=== PATIENT | male | born 1985 ===

== ENCOUNTER 2020-09-13 15:33 | Emergency (ER) | payer BC ==
[2020-09-13 15:47] VITALS: BP 141/95; PULSE 76
--- NOTE | 2020-09-13 16:32 | EDM.PDOC ---
ED HPI GENERAL MEDICAL PROBLEM - General Chief Complaint: Neuro Symptoms/Deficits Stated Complaint: MEMORY LOSS /SOB Time Seen by Provider: 09/13/20 16:32 - History of Present Illness INITIAL COMMENTS - FREE TEXT/NARRATIVE: 35-year-old male presents to the emergency room with memory loss and shortness of breath. Patient had memory loss where he could not remember certain things today. He also has some intermittent shortness of breath he describes as a burning shortness of breath. This seems to be improving now but was really bothersome today he can remember we put some [employer] presents. He was talking to his son and could not recall what he did over New Year's. The patient had a similar episode that lasted actually a couple of weeks back in June when he had some URI symptoms and had a bit of a cough. It is unclear if he had a fever at that point. The patient was not tested for Covid during that time. He did pretty good since that episode in June up until now. Along with this he gets some pretty significant discomfort normal spasm and some of his right sided neck muscles. Family history is significant for factor V Leiden, however the patient has not had any blood clots. - Related Data Allergies Allergy/AdvReac Type Severity Reaction Status Date / Time No Known Allergies Allergy Verified 09/13/20 15:47 Home Meds: Home Meds Dextroamphetamine/Amphetamine [Adderall 20 mg Tablet] 20 mg PO ASDIRECTED 01/14/16 [History] Past Medical History Musculoskeletal History: Reports: Fracture - Past Surgical History Musculoskeletal Surgical History: Reports: Shoulder Surgery Social & Family History - Family History Family Medical History: No Pertinent Family History - Tobacco Use Tobacco Use Status *Q: Never Tobacco User - Caffeine Use Caffeine Use: Reports: Coffee - Recreational Drug Use Recreational Drug Use: No ED ROS GENERAL - Review of Systems Review Of Systems: See Below Constitutional: Reports: Weakness, Fatigue HEENT: Reports: No Symptoms Respiratory: Reports: Shortness of Breath, Cough Cardiovascular: Reports: No Symptoms Endocrine: Reports: No Symptoms GI/Abdominal: Reports: No Symptoms : Reports: No Symptoms Musculoskeletal: Reports: Neck Pain Skin: Reports: No Symptoms Neurological: Reports: Confusion. Denies: No Symptoms Psychiatric: Reports: No Symptoms Hematologic/Lymphatic: Reports: No Symptoms Immunologic: Reports: No Symptoms ED EXAM, GENERAL - Physical Exam Exam: See Below Exam Limited By: Other (Patient is pretty much symptom-free at the time of my evaluation) General Appearance: Alert, No Apparent Distress Eye Exam: Bilateral Eye: Normal Inspection, PERRL Ears: Normal External Exam, Normal Canal, Hearing Grossly Normal, Normal TMs Nose: Normal Inspection, Normal Mucosa, No Blood Throat/Mouth: Normal Inspection, Normal Lips, Normal Teeth, Normal Gums, Normal Oropharynx, Normal Voice, No Airway Compromise Head: Atraumatic, Normocephalic Neck: Normal Inspection, Supple, Non-Tender, Full Range of Motion. No: Lymphadenopathy (L), Lymphadenopathy (R) Respiratory/Chest: No Respiratory Distress, Lungs Clear, Normal Breath Sounds Cardiovascular: Regular Rate, Rhythm, No Edema, No Murmur GI/Abdominal: Normal Bowel Sounds, Soft, Non-Tender Back Exam: Normal Inspection. No: CVA Tenderness (L), CVA Tenderness (R), Vertebral Tenderness Extremities: Normal Inspection, No Pedal Edema Neurological: Alert, Oriented, CN II-XII Intact, Normal Cognition, Normal Reflexes, No Motor/Sensory Deficits Psychiatric: Normal Affect, Normal Mood Skin Exam: Warm, Dry, Intact Course - Vital Signs Last Recorded V/S: Last Vital Signs Temp 36.6 C 09/13/20 15:42 Pulse 76 09/13/20 15:42 Resp 18 09/13/20 15:42 BP 141/95 H 09/13/20 15:42 Pulse Ox 99 09/13/20 15:42 - Orders/Labs/Meds Orders: Active Orders 24 hr Category Date Time Status Chest 1V Frontal [CR] Stat Exams 09/13/20 17:10 Taken Head wo Cont [CT] Stat Exams 09/13/20 17:10 Taken CORONAVIRUS COVID-19 PCR PHL Stat Lab 09/13/20 17:14 Ordered Labs: Laboratory Tests 09/13/20 09/13/20 09/13/20 Range/Units 17:40 17:40 18:25 WBC 8.89 (4.23-9.07) K/mm3 RBC 5.14 (4.63-6.08) M/mm3 Hgb 15.0 (13.7-17.5) gm/dl Hct 44.7 (40.1-51.0) % MCV 87.0 (79.0-92.2) fl MCH 29.2 (25.7-32.2) pg MCHC 33.6 (32.2-35.5) g/dl RDW Std Deviation 40.7 (35.1-43.9) fL Plt Count 255 (163-337) K/mm3 MPV 9.5 (9.4-12.3) fl Neut % (Auto) 59.0 (34.0-67.9) % Lymph % (Auto) 33.2 (21.8-53.1) % [place] % (Auto) 6.0 (5.3-12.2) % Eos % (Auto) 1.6 (0.8-7.0) Baso % (Auto) 0.1 (0.1-1.2) % Neut # (Auto) 5.25 (1.78-5.38) K/mm3 Lymph # (Auto) 2.95 (1.32-3.57) K/mm3 Barton # (Auto) 0.53 (0.30-0.82) K/mm3 Eos # (Auto) 0.14 (0.04-0.54) K/mm3 Baso # (Auto) 0.01 (0.01-0.08) K/mm3 Sodium 141 (136-145) mEq/L Potassium 3.6 (3.5-5.1) mEq/L Chloride 105 (98-107) mEq/L Carbon Dioxide 23 (21-32) mEq/L Anion Gap 16.6 H (5-15) BUN 20 H (7-18) mg/dL Creatinine 1.2 (0.7-1.3) mg/dL Est Cr Clr Drug Dosing 85.92 mL/min Estimated GFR (MDRD) > 60 (>60) mL/min BUN/Creatinine Ratio 16.7 (14-18) Glucose 86 (74-106) mg/dL Calcium 8.9 (8.5-10.1) mg/dL Total Bilirubin 0.7 (0.2-1.0) mg/dL AST 21 (15-37) U/L ALT 33 (16-63) U/L Alkaline Phosphatase 98 (46-116) U/L C-Reactive Protein 0.2 (<1.0) mg/dL Total Protein 7.6 (6.4-8.2) g/dl Albumin 4.0 (3.4-5.0) g/dl Globulin 3.6 gm/dL Albumin/Globulin Ratio 1.1 (1-2) Urine Color Yellow (Yellow) Urine Appearance Clear (Clear) Urine pH 6.0 (5.0-8.0) Ur Specific [place] > or = 1.030 (1.005-1.030) Urine Protein Negative (Negative) Urine Glucose (UA) Negative (Negative) Urine Ketones Negative (Negative) Urine Occult Blood Negative (Negative) Urine Nitrite Negative (Negative) Urine Bilirubin Negative (Negative) Urine Urobilinogen 0.2 (0.2-1.0) Ur Leukocyte Esterase Negative (Negative) - Re-Assessments/Exams Free Text/Narrative Re-Assessment/Exam: 09/13/20 19:06 Patient declined a Covid test his urinalysis is unremarkable CBC is unremarkable chemistries are remarkable only for looking a little on the dehydrated side. I discussed this with the patient and encouraged him to drink more fluids I do not have a good answer for what is causing his symptoms. I do recommend he follow-up with his regular physician and consider neurologic consultation and evaluation. Departure - Departure Time of Disposition: 19:06 Disposition: Home, Self-Care 01 Clinical Impression: Transient memory loss, Neck pain on right side, Shortness of breath - Discharge Information Referrals: Ayanna Enriquez IT SUPPORT MANAGER [Primary Care Provider] - Forms: ED Department Discharge Additional Instructions: Return to the emergency room with any questions problems or worsening symptoms. Follow-up with your regular healthcare provider discuss the benefits of a brain MRI and neurologic consultation. Sepsis Event Note (ED) - Evaluation Sepsis Screening Result: No Definite Risk - Focused Exam Vital Signs: Vital Signs Temp Pulse Resp BP Pulse Ox 09/13/20 15:42 36.6 C 76 18 141/95 H 99 - My Orders Last 24 Hours: My Active Orders 09/13/20 17:10 Chest 1V Frontal [CR] Stat Head wo Cont [CT] Stat 09/13/20 17:14 CORONAVIRUS COVID-19 PCR PHL Stat - Assessment/Plan Last 24 Hours: My Active Orders 09/13/20 17:10 Chest 1V Frontal [CR] Stat Head wo Cont [CT] Stat 09/13/20 17:14 CORONAVIRUS COVID-19 PCR PHL Stat
--- NOTE | 2020-09-14 09:40 | CT ---
Head CT Technique: Multiple axial sections through the brain were obtained. Reconstructed coronal images were obtained. Intravenous contrast was not utilized. Comparison: No prior intracranial imaging is available. Findings: Ventricles along with basal cisterns and sulci over the convexities are within normal limits for the patient's age. No abnormal parenchymal densities are seen. No evidence of intracranial hemorrhage. No midline shift or mass-effect is appreciated. Bone window settings were reviewed. Visualized mastoid sinuses and paranasal sinuses show nothing acute. No definite acute calvarial abnormality is appreciated. Impression: 1. Nothing acute is appreciated on noncontrast head CT study. Diagnostic code #1 I agree with preliminary report from [facility], finalized on 09/13/20, 6:51 PM [facility]
--- NOTE | 2020-09-18 08:44 | CR ---
Chest: PA view of the chest was obtained. Comparison: No prior chest imaging is available. Heart size and mediastinum are normal. Lungs are clear with no acute parenchymal change. No discrete bony abnormalities are appreciated. Impression: 1. Nothing acute is seen on PA chest x-ray. Diagnostic code #1
== END 2020-09-13 19:27 | disposition home or self-care (01) ==
LOC: JD.ED 15:33
DX: R41.3 Other amnesia (principal); M54.2 Cervicalgia; R06.02 Shortness of breath
CPT/HCPCS: 36415; 70450; 70450-26; 71045; 80053; 81003; 85025; 86140; 99283; 99285-25